=== PATIENT | male | born 1965 | race Caucasian/White ===

== ENCOUNTER 2016-11-08 03:36 | Emergency (ER) | payer OTHER ==
[2016-11-08 03:48] VITALS: BP 135/84; PULSE 61; RESP 16; TEMP 98.1; O2SAT 97
[2016-11-08] MEDS ORDERED: AMOXICILLIN/CLAVULANATE POT 875/125 MG TAB PO ONE ×2 (04:08→04:18)
--- NOTE | 2016-11-08 04:14 | EDPHY ---
[id number] 11/08/16 03:51 HPI/ROS: HPI The patient presents with left maxillary sinus pain for the last 1-2 weeks which is getting progressively worse. The pain is achy, worse at night. This is associated with tooth pain as well as fullness of his left ear. He has tried taking a nasal lavage without much improvement in his symptoms. He has significant rhinorrhea. He has not had any fevers or chills. He has history of similar and took a course of Augmentin with improvement in his symptoms. REVIEW OF SYSTEMS Constitutional: No fever, no chills. Eyes: No discharge. ENT: No sore throat. Cardiovascular: No chest pain, no palpitations. Respiratory: No cough, no shortness of breath. Gastrointestinal: No abdominal pain, no vomiting. Genitourinary: No hematuria. Musculoskeletal: No back pain. Skin: No rashes. Neurological: No headache. PMHx: Healthy Soc Hx: Recently relocated to the area PHYSICAL General Appearance: Alert, no distress Eyes: Pupils equal and round no pallor or injection ENT, Mouth: Left maxillary sinus is tender to palpation, no dental tenderness or areas of fluctuance, Mucous membranes moist Respiratory: Breathing comfortably Neurological: A&O, moves all extremities Skin: Warm and dry, no rashes Musculoskeletal: Neck is supple non tender Extremities: symmetrical, full range of motion Psychiatric: Patient is oriented X 3, there is no agitation Source: Patient Exam Limitations: No limitations - Personal History Current Tetanus/Diphtheria Vaccine: Unsure Current Tetanus Diphtheria and Acellular Pertussis (TDAP): Unsure - Medical/Surgical History Hx Asthma: No Hx Chronic Respiratory Disease: No Hx Diabetes: No Hx Cardiac Disease: No Hx Renal Disease: No Hx Cirrhosis: No Hx Alcoholism: No Hx HIV/AIDS: No Hx Splenectomy or Spleen Trauma: No Other PMH: DENIES - Social History Smoking Status: Never smoked Constitutional: Initial Vital Signs Temperature (C) 36.7 C 11/08/16 03:40 Heart Rate 61 11/08/16 03:40 Respiratory Rate 16 11/08/16 03:40 Blood Pressure 135/84 H 11/08/16 03:40 O2 Sat (%) 97 11/08/16 03:40 O2 Delivery Mode Room Air Allergies/Adverse Reactions: No Known Allergies Allergy (Unverified 11/08/16 03:48) Home Medications: Medication Instructions Recorded Amoxicillin/Clavulanate Pot 875 mg PO BID #14 tab 11/08/16 [Augmentin 875 MG TAB (*)] Fexofenadine HCl [Ligia Allergy] 60 mg PO 11/08/16 Hydrocodone/APAP 5/325 [[place] 1 tab PO 11/08/16 5/325 (*)] Singulair 10 mg (*) 11/08/16 Medical Decision Making Differential Diagnosis: This is a 51-year-old male who presents with left-sided facial pain associated with rhinorrhea. Differential diagnosis includes viral sinusitis, bacterial sinusitis, dental abscess. I will treat him for bacterial sinusitis with a course of Augmentin, which she has received before for sinusitis with good result. I have also encouraged him to take a decongestant such as Mucinex or Sudafed. I have given him a referral to [facility] if his symptoms continue. - Data Points Medications Given: Discontinued Medications Acetaminophen/Hydrocodone Bitart ([place] 5/325mg Prepack#6) 1 btl TAKEHOME EDNOW ONE Stop: 11/08/16 04:16 Last Admin: 11/08/16 04:29 Dose: 1 btl Amoxicillin/Clavulanate Potassium (Augmentin 875mg) 875 mg PO EDNOW ONE PRN Reason: Protocol Stop: 11/08/16 04:19 Last Admin: 11/08/16 04:29 Dose: 875 mg Departure - Departure Disposition: Home, Routine, Self-Care Clinical Impression: Acute sinusitis Instructions: Sinusitis (ED) Additional Instructions: Please follow up with the ENT doctor Colleen. Her contact information is listed below. You can take Mucinex 400 mg every 4 hours as needed for your symptoms. Referrals: Nitin Thompson MD [Primary Care Provider] - As per Instructions Eufemia Macias MD [Medical Doctor] - As per Instructions Prescriptions: Amoxicillin/Clavulanate Pot [Augmentin 875 MG TAB (*)] 875 mg PO BID #14 tab
[2016-11-08] MEDS ORDERED: HYDROCOD/APAP 5/325 PREPACK#6 BTL TAKEHOME ONE (04:15)
== END 2016-11-08 04:30 | disposition home or self-care (01) ==
DX: J01.90 Acute sinusitis, unspecified (principal); K08.89 Other specified disorders of teeth and supporting structures

== ENCOUNTER 2016-11-08 16:04 | Emergency (ER) | payer OTHER ==
[2016-11-08 16:11] VITALS: BP 130/77; PULSE 69; RESP 16; TEMP 98.2; O2SAT 98
[2016-11-08] MEDS ORDERED: DEXAMETHASONE 4 MG TAB PO ONE (16:32)
--- NOTE | 2016-11-08 16:36 | EDPHY ---
H & P Stated Complaint: Seen here early am for L cheek swelling;worse now;more painful Time Seen by Provider: 11/08/16 16:23 HPI/ROS: CHIEF COMPLAINT: Left cheek swelling HISTORY OF PRESENT ILLNESS: Patient is a 51-year-old healthy man who comes to the emergency department with his complaining of continued pain and swelling in his left cheek. He was seen here 12 hours ago with pain in the area but not significantly swollen at the time. He thought he had a sinus infection. He was prescribed azithromycin. He now is having more pain in his left upper molar and swelling over the site. He has had similar symptoms on the right side and had to have a tooth pulled by an oral surgeon. He has not had a fever. The Vicodin is not helping for his pain but ibuprofen is. REVIEW OF SYSTEMS: Constitutional: denies: chills, fever, recent illness, recent injury EENTM: See HPI Respiratory: denies: cough, shortness of breath Cardiac: denies: chest pain, irregular heart rate, lightheadedness, palpitations Gastrointestinal/Abdominal: denies: abdominal pain, diarrhea, nausea, vomiting, blood streaked stools Genitourinary: denies: dysuria, frequency, hematuria, pain Musculoskeletal: denies: joint pain, muscle pain Skin: denies: lesions, rash, jaundice, bruising Neurological: denies: headache, numbness, paresthesia, tingling, dizziness, weakness Hematologic/Lymphatic: denies: blood clots, easy bleeding, easy bruising Immunologic/allergic: denies: HIV/AIDS, transplant EXAM: GENERAL: Well-appearing, well-nourished and in no acute distress. HEAD: Atraumatic, normocephalic. EYES: Pupils equal round and reactive to light, extraocular movements intact, sclera anicteric, conjunctiva are normal. ENT: TMs normal, nares patent, oropharynx clear without exudates. See diagram NECK: Normal range of motion, supple without lymphadenopathy or JVD. LUNGS: Breath sounds clear to auscultation bilaterally and equal. No wheezes rales or rhonchi. HEART: Regular rate and rhythm without murmurs, rubs or gallops. ABDOMEN: Soft, nontender, normoactive bowel sounds. No guarding, no rebound. No masses appreciated. BACK: No CVA tenderness, no spinal tenderness, step-offs or deformities EXTREMITIES: Normal range of motion, no pitting or edema. No clubbing or cyanosis. NEUROLOGICAL: Cranial nerves II through XII grossly intact. Normal speech, normal gait. 5/5 strength, normal movement in all extremities, normal sensation PSYCH: Normal mood, normal affect. SKIN: Warm, dry, normal turgor, no visible rashes or lesions. Source: Patient Exam Limitations: No limitations - Personal History Current Tetanus Diphtheria and Acellular Pertussis (TDAP): Yes - Medical/Surgical History Hx Asthma: No Hx Chronic Respiratory Disease: No Hx Diabetes: No Hx Cardiac Disease: No Hx Renal Disease: No Hx Cirrhosis: No Hx Alcoholism: No Hx HIV/AIDS: No Hx Splenectomy or Spleen Trauma: No Other PMH: DENIES - Family History Significant Family History: No pertinent family hx - Social History Smoking Status: Never smoked Alcohol Use: Sober Drug Use: None Constitutional: Initial Vital Signs Temperature (C) 36.8 C 11/08/16 16:08 Heart Rate 69 11/08/16 16:08 Respiratory Rate 16 11/08/16 16:08 Blood Pressure 130/77 H 11/08/16 16:08 O2 Sat (%) 98 11/08/16 16:08 O2 Delivery Mode Room Air Allergies/Adverse Reactions: No Known Allergies Allergy (Unverified 11/08/16 03:48) Home Medications: Medication Instructions Recorded Amoxicillin/Clavulanate Pot 875 mg PO BID #14 tab 11/08/16 [Augmentin 875 MG TAB (*)] Fexofenadine HCl [Ligia Allergy] 60 mg PO 11/08/16 Hydrocodone/APAP 5/325 [[place] 1 tab PO 11/08/16 5/325 (*)] Singulair 10 mg (*) 11/08/16 ED Images - Head Mouth: 1 - Tenderness to percussion, mild surrounding erythema, no visible abscess. Several fillings in place. No visible fracture Medical Decision Making ED Course/Re-evaluation: Think the patient likely has a dental periapical abscess. I will refer him back to oral surgery and continue the Augmentin. He and his agree with this plan. Also give him a dose of steroids to attempt to decrease the swelling. They declined different prescriptions for pain and will start taking ibuprofen in addition to the Vicodin. Differential Diagnosis: Partial list of the Differential diagnosis considered include but were not limited to; dental infection, sinus infection, cellulitis, abscess , parotid gland stoneand although unlikely based on the history and physical exam, I also considered intracranial mass, head injury, facial fracture. I discussed these differential diagnoses and the plan with the patient as well as the usual and expected course. The patient understands that the diagnosis is provisional and that in medicine we are not always correct and that further workup is often warranted. Usual and customary warnings were given. All of the patient's questions were answered. The patient was instructed to return to the emergency department should the symptoms at all worsen or return, otherwise to followup with the physician as we discussed. Departure - Departure Disposition: Home, Routine, Self-Care Clinical Impression: Infection of tooth Condition: Fair Instructions: Dental Abscess (ED) Referrals: Huseyin Orourke MD [Primary Care Provider] - As per Instructions Jana Reyna [Medical Doctor] - As per Instructions
== END 2016-11-08 16:48 | disposition home or self-care (01) ==
DX: K04.7 Periapical abscess without sinus (principal)